=== PATIENT | male | born 1960 | race Caucasian/White ===

== ENCOUNTER → 2021-07-05 | Outpatient (CLI) | payer OTHER ==
--- NOTE | 2021-07-06 11:23 | RAD ---
Study: XR KNEE_LT 1-2 VIEWS Indication: Left knee pain. Comparison: None. Findings: End-stage arthrosis with severe medial and moderate to severe lateral joint space narrowing. Bulky os teophyte formation. Genu varus. Degenerative lateral translation of the tibia relative to the femur. Prominent cyst with a thin rim of sclerosis subjacent to the tibial eminence. Subchondral cystic otero ge such as at the medial compartment. Loose bodies. No large knee joint effusion. No fracture. Impression: End-stage tricompartmental osteoarthrosis, as above. Electronically signed by: CHUCK FRANCO MD (07/06/2021 10:11 AM) [id number]
--- NOTE | 2021-07-06 11:23 | RAD ---
Study: XR EXAM OF ANKLE_RIGHT 2 VIEWS Indication: Right ankle pain. Comparison: None. Findings: Distal fibula plate and screw fixation construct. Two screws spanning the medial malleolus and two sc rews extending in the anterior to posterior direction along the tibial plafond. One of the tibial sarwat fond screws is proud by 15 mm and tents the skin surface on the lateral view. Thin lucency along both tibial plafond screws. The medial malleolar screws and fibula hardware are intact and well fixated. End-stage arthrosis at the ankle with joint space collapse and articular surface remodeling. Moderate subtalar arthrosis. Moderate/severe talonavicular arthrosis. Less pronounced arthrosis at the calcan eocuboid, naviculocuneiform and tarsometatarsal joints. No acute fracture. Impression: 1.Two screws spanning the tibial plafond exhibit features of loosening and one of the screws is proud by 15 mm with tenting of the skin surface at the anterior ankle. The rest of the hardware is intact and well fixated. 2. End-stage arthrosis at the ankle. Moderate/severe arthrosis at the talonavicular joint and moderat e arthrosis at the subtalar joint. Less pronounced arthrosis at the calcaneocuboid, naviculocuneiform and tarsometatarsal joints. 3. No acute fracture. Electronically signed by: CHUCK FRANCO MD (07/06/2021 10:17 AM) [id number]
== END ==
LOC: RAD 09:41
PROVIDERS: ATTEND Anesthesiology Pain Medicine
DX: Z02.71 Encounter for disability determination (principal); M17.12 Unilateral primary osteoarthritis, left knee; M25.762 Osteophyte, left knee; M21.162 Varus deformity, not elsewhere classified, left knee; M19.071 Primary osteoarthritis, right ankle and foot; Z96.698 Presence of other orthopedic joint implants
CPT/HCPCS: 73560; 73600